=== PATIENT | female | born 1980 | race Caucasian/White ===

== ENCOUNTER 2017-03-14 06:16 | Inpatient (IN) | payer OTHER ==
[~2017-03-14 06:16] MED LIST: Buffered Lidocaine 1% SYR 3ML* 3 ML/SYR SYRINGE INTRADERM ONE; Sodium Citrate/Citric Acid* 15 ML UDC PO ONE
[2017-03-14] MEDS ORDERED: ceFOXitin 2 GM IVPREMIX* 2 GM/50 ML BAG IVPB ONE (06:52)
[2017-03-14] MEDS ORDERED: Morphine PF AMP (0.5MG/ML)* 5 MG/10 ML AMP ONE (07:20)
[2017-03-14] MEDS ORDERED: Phenylephrine IV* 40 MCG/ML 10 ML SYRINGE ONE (08:16)
[2017-03-14] MEDS ORDERED: EPHEDrine (Pressors)* 50 MG/ML VIAL ONE (08:23)
[2017-03-14] MEDS ORDERED: Ondansetron INJ* 2 MG/ML VIAL ONE (08:34)
[2017-03-14] MEDS ORDERED: OXYTOCIN* 10 UNITS/ML 1 ML VIAL ONE (08:34)
[2017-03-14] MEDS ORDERED: Dexamethasone IV* 4 MG/ML 1 ML (4 MG) ONE (08:34)
[2017-03-14] MEDS ORDERED: PROCHLORPERAZINE INJ 5 MG/ML 2 ML VIAL IV PRN (08:35)
[2017-03-14] MEDS ORDERED: fentaNYL* 50 MCG/ML 2 ML VIAL (100 MCG VIAL) IV PRN (08:35)
[2017-03-14] MEDS ORDERED: Acetaminophen IV 1GM/100ML * 100 ML IVPB ONE (08:35)
[2017-03-14] MEDS ORDERED: oxyCODONE TAB* 5 MG TAB PO PRN ×2 (08:35→08:50)
[2017-03-14] MEDS ORDERED: Scopolomine PATCH Remove* 1 NOTE MISC PATCH OFF PRN (08:50)
[2017-03-14] MEDS ORDERED: Nalbuphine* 20 MG/ML 1 ML VIAL IV PRN (08:50)
[2017-03-14] MEDS ORDERED: Scopolamine 1.5 mg* PATCH TRANSDERM PRN (08:50)
[2017-03-14] MEDS ORDERED: Naloxone* 0.4 MG/ML 1 ML VIAL IV PRN (08:50)
[2017-03-14] MEDS ORDERED: Ondansetron INJ* 2 MG/ML VIAL IV PRN (08:50)
[2017-03-14] MEDS ORDERED: Ketorolac INJ* 30 MG/ML 1 ML VIAL IV SCH (09:00)
[2017-03-14] MEDS ORDERED: Glycerin ADULT SUPP PR PRN (09:28)
[2017-03-14] MEDS ORDERED: oxyCODONE/Acetamin 5/325 MG* TAB PO PRN ×2 (09:28)
[2017-03-14] MEDS ORDERED: Zolpidem TAB* 5 MG PO PRN (09:28)
[2017-03-14] MEDS ORDERED: Witch Hazel PAD* JAR TOPICAL PRN (09:28)
[2017-03-14] MEDS ORDERED: Dibucaine 1% 28.35 GM TUBE PR PRN (09:28)
[2017-03-14] MEDS ORDERED: Ketorolac INJ* 30 MG/ML 1 ML VIAL ONE (10:02)
[2017-03-14] MEDS: Simethicone CHEW TAB* 80 MG PO SCH ×3 (12:56→21:00)
[2017-03-14] MEDS: Docusate CAP* 100 MG PO SCH ×2 (14:30→21:00)
[2017-03-14] MEDS: Ketorolac INJ* 30 MG/ML 1 ML VIAL IV SCH ×2 (16:10→22:22)
[2017-03-14] MEDS: Acetaminophen TAB* 325 MG PO SCH ×2 (17:46→17:47)
--- NOTE | 2017-03-14 22:54 | OP ---
OPERATIVE REPORT: DATE OF OPERATION: 03/14/17 DATE OF : 78 SURGEON: Griffin Parson MD DIGITAL ASSET SPECIALIST: Wily Lizarraga MD SECOND DIGITAL ASSET SPECIALIST: Brea Damon, plant production manager. PRE-OP DIAGNOSIS: at 40 weeks. Estimated gestational age. Prior section x2 and the patient desires permanent sterilization. POST-OP DIAGNOSIS: at 40 weeks. Estimated gestational age. Prior section x2 and the patient desires permanent sterilization. OPERATIVE PROCEDURE: Repeat low-transverse section with a bilateral tubal ligation via fimbriectomy along with the delivery of the head with vacuum assistance. ANESTHESIA: Spinal. ESTIMATED BLOOD LOSS: 600 cc. SPECIMENS SENT TO PATHOLOGY: Bilateral fimbriae and cord blood. FLUIDS: She received 1700 cc of IV crystalloid fluid. URINE OUTPUT: Clear. FINDINGS: Delivery of a viable male infant weighing 6 pounds 6 ounces over clear fluid with Apgars of 8 and 9. The placenta was grossly intact with a 3- vessel cord noted. The uterus, adnexa, bowel, and bladder were all within normal limits and there were no complications. DESCRIPTION OF PROCEDURE: The patient was taken to the operating room, where she was identified. She was placed on the operating table where spinal anesthetic was obtained without difficulty. She was placed in the supine position with a leftward tilt, prepped and draped in the normal sterile fashion. A Pfannenstiel skin incision was made with a knife and carried through to the underlying layer of fascia. The fascia was nicked in the midline and extended laterally with curved Randhawa scissors. The fascia was then grasped superiorly and inferiorly with Renard clamps and dissected off sharply from the rectus muscle. The rectus muscle was in the midline bluntly. The peritoneum was identified, grasped with pickups, entered sharply with Metzenbaum scissors and extended superiorly, inferiorly sharply. A bladder blade was inserted into the patient's abdomen. A bladder flap was created using Metzenbaum scissors over which a bladder blade was then re- inserted. A low transverse uterine incision was made with the knife, extended laterally with bandage scissors. The amniotic sac was ruptured. Fluid was noted to be clear. The infant's head was then grasped and delivered up to the incision. Vacuum was then applied to the 's head. The 's head was then delivered. The vacuum was removed. The nose and mouth were suctioned. The rest of the infant's body was then delivered. Cord bloods were obtained. The placenta was then removed manually. The uterus was then exteriorized, cleared of all clot and debris using moist laparotomy sponges. The uterine incision was closed using 0 Polysorb suture in a running locked fashion with a second imbricating layer of 0 Polysorb suture. Uterine incision was noted to be normal. At this point, a bilateral fimbriectomy was performed in the usual fashion after the section. The portions of the right and left fimbriae were sent to pathology. The uterus was then returned to the patient's abdomen. The gutters were then cleared of all clot and debris using moist laparotomy sponges. All the sponges were removed from the patient's abdomen as well as instruments. The peritoneum was closed using 3-0 Polysorb suture in a running fashion. The fascia was closed using 0 Polysorb suture in a running fashion and the skin was closed with a 4-0 Monocryl subcuticular stitch. The patient tolerated the procedure well. Sponge, lap, and needle counts were correct x2. She was then transferred to recovery room area in stable condition. [id number]/[facility] #: [id number] PUSHPA
[2017-03-15] MEDS: Acetaminophen TAB* 325 MG PO SCH (01:00)
[2017-03-15] MEDS ORDERED: oxyCODONE/Acetamin 5/325 MG* TAB PO PRN (01:00)
[2017-03-15] MEDS: Ketorolac INJ* 30 MG/ML 1 ML VIAL IV SCH ×2 (04:24→11:05)
[2017-03-15 07:42] LABS: Hematocrit 34 % (35-47); Hemoglobin 11.3 g/dl (12.0-16.0); Mean Corpuscular HGB Conc 33 g/dl (31-36); Mean Corpuscular Hemoglobin 31 pg (27-31); Mean Corpuscular Volume 93 fL (80-97); Mean Platelet Volume 9 um3 (7.4-10.4); Red Blood Count 3.68 10^6/ul (4.0-5.4); Red Cell Distribution Width 13 % (10.5-15); White Blood Count 11.7 10^3/ul (3.5-10.8)
[2017-03-15] MEDS: Simethicone CHEW TAB* 80 MG PO SCH ×4 (07:50→23:18)
[2017-03-15] MEDS: Docusate CAP* 100 MG PO SCH ×3 (07:50→23:18)
[2017-03-15] MEDS: oxyCODONE/Acetamin 5/325 MG* TAB PO PRN ×4 (07:50→23:18)
[2017-03-15] MEDS ORDERED: Acetaminophen TAB* 325 MG PO PRN (09:00)
[2017-03-15] MEDS ORDERED: Ferrous Gluconate TAB* 324 MG TAB PO SCH (09:00)
[2017-03-15] MEDS: Cetirizine* 10 MG TAB PO SCH (11:58)
[2017-03-15] MEDS: Ibuprofen TAB* 600 MG PO PRN ×3 (11:58→23:18)
[2017-03-15] MEDS: Hydrocortisone 1% CREAM* 30 GM TUBE TOPICAL SCH ×3 (11:59→23:19)
[2017-03-16] MEDS: oxyCODONE/Acetamin 5/325 MG* TAB PO PRN ×4 (05:47→21:34)
[2017-03-16] MEDS: Ibuprofen TAB* 600 MG PO PRN ×3 (05:48→18:20)
[2017-03-16] MEDS: Hydrocortisone 1% CREAM* 30 GM TUBE TOPICAL SCH ×3 (08:54→21:00)
[2017-03-16] MEDS: Docusate CAP* 100 MG PO SCH ×3 (08:54→21:32)
[2017-03-16] MEDS: Simethicone CHEW TAB* 80 MG PO SCH ×3 (08:56→18:20)
[2017-03-16] MEDS: Cetirizine* 10 MG TAB PO SCH (08:56)
[2017-03-17] MEDS: Ibuprofen TAB* 600 MG PO PRN ×2 (02:11→09:56)
[2017-03-17] MEDS: Simethicone CHEW TAB* 80 MG PO SCH ×2 (02:11→09:55)
[2017-03-17] MEDS: Cetirizine* 10 MG TAB PO SCH (09:56)
[2017-03-17] MEDS: Docusate CAP* 100 MG PO SCH (09:56)
[2017-03-17] MEDS: oxyCODONE/Acetamin 5/325 MG* TAB PO PRN (11:02)
[2017-03-17 11:21] VITALS: BP 102/58
== END 2017-03-17 11:36 | disposition home or self-care (01) | DRG 540 ==
LOC: MCHOB 06:16
PROVIDERS: ADMIT Obstetrics & Gynecology; ATTEND Obstetrics & Gynecology
PROC: 0UB70ZZ Excision of Bilateral Fallopian Tubes, Open Approach (ICD-10-PCS; 2017-03-14)
PROC: 10D00Z1 Extraction of Products of Conception, Low, Open Approach (ICD-10-PCS; principal; 2017-03-14 07:45)
DX: O34.211 Maternal care for low transverse scar from previous cesarean delivery (principal); O99.824 Streptococcus B carrier state complicating childbirth; O09.523 Supervision of elderly multigravida, third trimester; Z3A.40 40 weeks gestation of pregnancy; Z37.0 Single live birth; L08.0 Pyoderma
CPT/HCPCS: 36415; 85025; 88302; A9270-GY; J0694; J1100; J1885; J2300; J2405; J2590